=== PATIENT | male | born 1965 ===

== ENCOUNTER 2018-08-01 09:40 | Day surgery (SDC) | payer SELFPAY ==
[~2018-08-01] VITALS: Ht 170.2 cm; Wt 91.0 kg
== END 2018-08-01 11:39 | disposition home or self-care (01) ==
LOC: ORSCSDS 09:40
PROVIDERS: Surgery
PROC: 0DJD8ZZ Inspection of Lower Intestinal Tract, Via Natural or Artificial Opening Endoscopic (ICD-10-PCS; principal; 2018-08-01 10:45)
DX: Z12.11 Encounter for screening for malignant neoplasm of colon (principal); Z80.0 Family history of malignant neoplasm of digestive organs; E66.9 Obesity, unspecified; Z68.32 Body mass index [BMI] 32.0-32.9, adult
CPT/HCPCS: J7120

== ENCOUNTER → 2021-11-27 | Outpatient (CLI) | payer SELFPAY | END | disposition home or self-care (01) | LOC: LAB SHORT 11:23 → LAB 11:23 | DX: S31.109A Unspecified open wound of abdominal wall, unspecified quadrant without penetration into peritoneal cavity, initial encounter (principal) | CPT/HCPCS: 87070; 87075; 87077; 87186; 87205 ==

== ENCOUNTER 2022-04-06 00:26 | Day surgery (SDC) | payer SELFPAY | END 2022-04-06 23:46 | disposition home or self-care (01) | LOC: WOUND 00:26 | DX: T81.31XA Disruption of external operation (surgical) wound, not elsewhere classified, initial encounter (principal); S31.109D Unspecified open wound of abdominal wall, unspecified quadrant without penetration into peritoneal cavity, subsequent encounter; Z22.322 Carrier or suspected carrier of Methicillin resistant Staphylococcus aureus | CPT/HCPCS: G0463 ==

== ENCOUNTER 2022-04-13 07:24 | Day surgery (SDC) | payer SELFPAY | END 2022-04-13 23:43 | disposition home or self-care (01) | LOC: WOUND 07:24 | DX: T81.31XA Disruption of external operation (surgical) wound, not elsewhere classified, initial encounter (principal); S31.109D Unspecified open wound of abdominal wall, unspecified quadrant without penetration into peritoneal cavity, subsequent encounter; Z22.322 Carrier or suspected carrier of Methicillin resistant Staphylococcus aureus; Y83.8 Other surgical procedures as the cause of abnormal reaction of the patient, or of later complication, without mention of misadventure at the time of the procedure | CPT/HCPCS: A9270; G0463 ==

== ENCOUNTER 2022-04-27 01:52 | Day surgery (SDC) | payer SELFPAY | END 2022-04-27 23:16 | disposition home or self-care (01) | LOC: WOUND 01:52 | DX: T81.31XD Disruption of external operation (surgical) wound, not elsewhere classified, subsequent encounter (principal); Y83.9 Surgical procedure, unspecified as the cause of abnormal reaction of the patient, or of later complication, without mention of misadventure at the time of the procedure; Z22.322 Carrier or suspected carrier of Methicillin resistant Staphylococcus aureus | CPT/HCPCS: G0463 ==

== ENCOUNTER 2022-06-03 06:28 | Day surgery (SDC) | payer SELFPAY | END 2022-06-03 23:31 | disposition home or self-care (01) | LOC: WOUND 06:28 | DX: T81.30XD Disruption of wound, unspecified, subsequent encounter (principal); Z22.322 Carrier or suspected carrier of Methicillin resistant Staphylococcus aureus; Z86.16 Personal history of COVID-19 | CPT/HCPCS: G0463 ==